=== PATIENT | female | born 1990 | race Caucasian/White ===

== ENCOUNTER 2017-03-06 13:29 | Outpatient (CLI) | payer OTHER | END 2017-03-06 13:30 | LOC: POD 13:29 | PROVIDERS: ATTEND Podiatrist | DX: B07.0 Plantar wart (principal) | CPT/HCPCS: 99202 ==

== ENCOUNTER 2017-05-08 13:39 | Outpatient (CLI) | payer OTHER | END 2017-05-08 13:40 | LOC: POD 13:39 | PROVIDERS: ATTEND Podiatrist | DX: B07.0 Plantar wart (principal) | CPT/HCPCS: 11420 ==

== ENCOUNTER 2017-05-22 13:35 | Outpatient (CLI) | payer OTHER | END 2017-05-22 13:36 | LOC: POD 13:35 | PROVIDERS: ATTEND Podiatrist | DX: B07.0 Plantar wart (principal) | CPT/HCPCS: 99213 ==